=== PATIENT | male | born 1955 | race Hispanic/Latino ===

== ENCOUNTER 2018-03-05 17:37 | Inpatient (IN) | payer SELFPAY ==
[~2018-03-05] VITALS: Ht 180.3 cm; Wt 103.5 kg
[2018-03-05 17:57] LABS: BASOPHILS % (AUTO) 0.2 % (0.0-5.0); EOSINOPHILS % (AUTO) 0.7 % (0.0-8.0); HEMATOCRIT 47.9 % (42-54); LYMPHOCYTES % (AUTO) 7.7 % (21.0-51.0); MEAN CORPUSCULAR HEMOGLOBIN 28.5 pg (27.0-33.0); MEAN CORPUSCULAR VOLUME 83.8 fL (79-99); MONOCYTES % (AUTO) 3.1 % (3.0-13.0); NEUTROPHILS % (AUTO) 88.3 % (40.0-77.0); PLATELET COUNT (AUTO) 308 K/uL (130-400); RED BLOOD CELL COUNT(AUTO) 5.71 MIL/uL (4.50-6.20); RED CELL DISTRIBUTION WIDTH 13.4 % (11.0-15.5); WHITE BLOOD COUNT (AUTO) 10.2 K/uL (4.8-10.8)
[2018-03-05 18:11] LABS: CARBON DIOXIDE 27 mmol/L (21-32); CHLORIDE 102 mmol/L (101-111); CREATININE 0.8 mg/dL (0.5-1.5); GLOMERULAR FILTR. RATE CALC 104 mL/min (>60); GLUCOSE,RANDOM 163 mg/dL (70-105); POTASSIUM 3.8 mmol/L (3.5-5.1); SODIUM SERUM 138 mmol/L (136-145); UREA NITROGEN, BLOOD 25 mg/dL (7-18)
[2018-03-05 18:12] LABS: INR 1.02 (0.85-1.15); PARTIAL THROMBOPLASTIN TIME 27.8 SEC (26.3-35.5); PROTHROMBIN TIME 10.7 SEC (9.6-11.6)
[2018-03-05 18:25] LABS: ALANINE AMINOTRANSFERASE 35 U/L (12-78); ALBUMIN 3.7 g/dL (3.5-5.0); ASPARTATE AMINOTRANSFERASE 32 U/L (10-37); BILIRUBIN,TOTAL 1.8 mg/dL (0.2-1.0); CREATINE KINASE, TOTAL 92 U/L (21-232); MYOGLOBIN 43 ng/mL (10-92); TOTAL PROTEIN, SERUM 7.9 g/dL (6.0-8.3); TROPONIN I < 0.04 ng/mL (0.00-0.06)
[2018-03-05 18:43] LABS: APPEARANCE,URINE Clear (CLEAR); BILIRUBIN,URINE Negative (NEGATIVE); COLOR,URINE Yellow (YELLOW); GLUCOSE, URINE (UA) Negative (NEGATIVE); KETONES,URINE 40 mg/dL (NEGATIVE); LEUKOCYTE ESTERASE ,URINE Small (NEGATIVE); NITRATE,URINE Negative (NEGATIVE); OCCULT BLOOD,URINE Moderate (NEGATIVE); PROTEIN,URINE POS 1+ (NEGATIVE)
[2018-03-05] MEDS ORDERED: ACETAMINOPHEN 325 MG TAB ONE (18:49)
[2018-03-05] MEDS ORDERED: ONDANSETRON HCL 4 MG/2 ML VIAL ONE (18:49)
[2018-03-05] MEDS ORDERED: SODIUM CHLORIDE 0.9% 1000ML 1,000 ML IV ONE (18:49)
[2018-03-05] MEDS ORDERED: MORPHINE SULFATE 8 MG/ML VIAL ONE (18:50)
[2018-03-05 19:14] LABS: BACTERIA,URINE None Seen /HPF (None Seen); MUCUS,URINE Moderate LPF (None Seen)
[2018-03-05] MEDS ORDERED: CEFTRIAXONE SODIUM 1 GM ONE (20:21)
[2018-03-05] MEDS ORDERED: MORPHINE SULFATE 2 MG/ML 1ML SYG ONE (22:08)
[2018-03-06] MEDS ORDERED: KETOROLAC TROMETHAMINE 15MG/ML ONE (03:50)
[2018-03-06] MEDS ORDERED: SODIUM CHLORIDE 0.9% 1000ML 1,000 ML IV ONE (03:50)
[2018-03-06] MEDS ORDERED: ACETAMINOPHEN 325 MG TAB ONE (04:47)
[2018-03-06 06:34] LABS: BASOPHILS % (AUTO) 0.3 % (0.0-5.0); EOSINOPHILS % (AUTO) 0.7 % (0.0-8.0); HEMATOCRIT 42.7 % (42-54); LYMPHOCYTES % (AUTO) 15.7 % (21.0-51.0); MEAN CORPUSCULAR HEMOGLOBIN 28.7 pg (27.0-33.0); MEAN CORPUSCULAR HGB CONC 33.8 g/dL (32.0-36.0); MONOCYTES % (AUTO) 8.8 % (3.0-13.0); NEUTROPHILS % (AUTO) 74.5 % (40.0-77.0); PLATELET COUNT (AUTO) 220 K/uL (130-400); RED BLOOD CELL COUNT(AUTO) 5.02 MIL/uL (4.50-6.20); RED CELL DISTRIBUTION WIDTH 13.5 % (11.0-15.5); WHITE BLOOD COUNT (AUTO) 4.7 K/uL (4.8-10.8)
[2018-03-06 07:22] LABS: CREATININE 0.8 mg/dL (0.5-1.5); POTASSIUM 3.4 mmol/L (3.5-5.1)
[2018-03-06 07:28] LABS: ALBUMIN 2.9 g/dL (3.5-5.0); BILIRUBIN,TOTAL 1.4 mg/dL (0.2-1.0); TOTAL PROTEIN, SERUM 6.6 g/dL (6.0-8.3)
[2018-03-06 08:30] VITALS: BP 126/44
[2018-03-06 11:00] VITALS: BP 141/88
[2018-03-06] MEDS ORDERED: KETOROLAC TROMETHAMINE 15MG/ML IV PRN (13:30)
[2018-03-06] MEDS ORDERED: MORPHINE SULFATE 4 MG/1ML SYG IM PRN (13:30)
[2018-03-06] MEDS ORDERED: POTASSIUM CHLORIDE 20MEQ/100ML 100 ML IV PRN (13:30)
[2018-03-06] MEDS ORDERED: POTASSIUM CHLORIDE 10% ELIXIR 20 MEQ/15 ML UDCUP PO PRN (13:30)
[2018-03-06] MEDS ORDERED: ONDANSETRON HCL MDV 20ML 2 MG/ML VIAL IVP PRN (13:30)
[2018-03-06] MEDS ORDERED: LIDOCAINE HCL-MPF 1% 2ML VIAL IVP PRN (13:30)
[2018-03-06] MEDS ORDERED: ACETAMINOPHEN 325 MG TAB PO PRN (13:30)
[2018-03-06] MEDS: SODIUM CHLORIDE 0.9% 1000ML 1,000 ML IV SCH (13:30)
[2018-03-06] MEDS ORDERED: ATOR40TA71 PO (15:01)
[2018-03-06] MEDS ORDERED: LISI-617 PO (15:01)
[2018-03-06] MEDS ORDERED: LEVO500T2 PO (15:01)
[2018-03-06] MEDS ORDERED: METF-526 PO (15:01)
[2018-03-06] MEDS ORDERED: TAMS-1 PO (15:01)
[2018-03-06 16:00] VITALS: BP 135/77
[2018-03-06] MEDS: INSULIN HUMULIN R 100 UNIT/ML 3ML SQ SCH ×2 (16:30→20:15)
[2018-03-06 19:15] VITALS: BP 148/93
[2018-03-06 23:15] VITALS: BP 120/68
[2018-03-07] MEDS: SODIUM CHLORIDE 0.9% 1000ML 1,000 ML IV SCH ×2 (02:00→11:55)
[2018-03-07 03:30] VITALS: BP 136/82
[2018-03-07] MEDS: INSULIN HUMULIN R 100 UNIT/ML 3ML SQ SCH ×4 (07:07→21:00)
[2018-03-07 08:00] VITALS: BP 142/90
[2018-03-07 11:00] VITALS: BP 147/79
[2018-03-07 16:00] VITALS: BP 150/77
[2018-03-07] MEDS: FAMOTIDINE/PF 20 MG/2 ML VIAL IV SCH ×2 (16:19→21:07)
[2018-03-07] MEDS: METFORMIN HCL 500 MG TABLET PO SCH (16:20)
[2018-03-07] MEDS: POTASSIUM CHLORIDE 20 MEQ ERTAB PO PRN ×2 (16:20→18:33)
[2018-03-07] MEDS: CEFTRIAXONE SODIUM 1 GM IV SCH (18:33)
[2018-03-07 19:34] VITALS: BP 140/82
[2018-03-07] MEDS: LISINOPRIL 5 MG TABLET PO SCH (21:07)
[2018-03-07] MEDS ORDERED: LOPERAMIDE HCL 2 MG CAP PO ONE (21:21)
[2018-03-07 23:44] VITALS: BP 155/81
[2018-03-08] MEDS: SODIUM CHLORIDE 0.9% 1000ML 1,000 ML IV SCH ×2 (03:29→09:28)
[2018-03-08 03:57] VITALS: BP 143/77
[2018-03-08 06:09] LABS: BASOPHILS % (AUTO) 0.3 % (0.0-5.0); EOSINOPHILS % (AUTO) 3.1 % (0.0-8.0); HEMATOCRIT 43.8 % (42-54); LYMPHOCYTES % (AUTO) 30.6 % (21.0-51.0); MEAN CORPUSCULAR HEMOGLOBIN 28.8 pg (27.0-33.0); MEAN CORPUSCULAR HGB CONC 34.2 g/dL (32.0-36.0); MEAN CORPUSCULAR VOLUME 84.3 fL (79-99); MONOCYTES % (AUTO) 11.5 % (3.0-13.0); NEUTROPHILS % (AUTO) 54.5 % (40.0-77.0); PLATELET COUNT (AUTO) 234 K/uL (130-400); RED BLOOD CELL COUNT(AUTO) 5.19 MIL/uL (4.50-6.20); RED CELL DISTRIBUTION WIDTH 13.9 % (11.0-15.5); WHITE BLOOD COUNT (AUTO) 4.5 K/uL (4.8-10.8)
[2018-03-08] MEDS: INSULIN HUMULIN R 100 UNIT/ML 3ML SQ SCH ×4 (06:16→20:39)
[2018-03-08 06:18] LABS: CREATININE 0.7 mg/dL (0.5-1.5); POTASSIUM 3.8 mmol/L (3.5-5.1)
[2018-03-08 08:00] VITALS: BP 149/85
[2018-03-08] MEDS: ATORVASTATIN CALCIUM 40 MG TABLET PO SCH (09:24)
[2018-03-08] MEDS: TAMSULOSIN HCL 0.4 MG CAP.ER.24H PO SCH (09:24)
[2018-03-08] MEDS: CEFTRIAXONE SODIUM 1 GM IV SCH (09:24)
[2018-03-08] MEDS: FAMOTIDINE/PF 20 MG/2 ML VIAL IV SCH ×2 (09:24→20:42)
[2018-03-08 12:00] VITALS: BP 141/78
[2018-03-08 16:00] VITALS: BP 139/90
[2018-03-08] MEDS: METFORMIN HCL 500 MG TABLET PO SCH (17:22)
[2018-03-08 20:24] VITALS: BP 150/87
[2018-03-08] MEDS: LISINOPRIL 5 MG TABLET PO SCH (20:42)
[2018-03-08] MEDS: LOPERAMIDE HCL 2 MG CAP PO PRN (21:55)
[2018-03-09 00:24] VITALS: BP 113/54
[2018-03-09] MEDS: SODIUM CHLORIDE 0.9% 1000ML 1,000 ML IV SCH ×2 (03:55→07:43)
[2018-03-09 04:12] LABS: BASOPHILS % (AUTO) 0.4 % (0.0-5.0); EOSINOPHILS % (AUTO) 4.5 % (0.0-8.0); HEMATOCRIT 42.6 % (42-54); LYMPHOCYTES % (AUTO) 28.3 % (21.0-51.0); MEAN CORPUSCULAR HEMOGLOBIN 29.1 pg (27.0-33.0); MEAN CORPUSCULAR HGB CONC 34.5 g/dL (32.0-36.0); MEAN CORPUSCULAR VOLUME 84.4 fL (79-99); MONOCYTES % (AUTO) 9.5 % (3.0-13.0); NEUTROPHILS % (AUTO) 57.3 % (40.0-77.0); NUCLEATED RED BLOOD CELLS 0.1 % (0.0-0.19); PLATELET COUNT (AUTO) 244 K/uL (130-400); RED BLOOD CELL COUNT(AUTO) 5.05 MIL/uL (4.50-6.20); RED CELL DISTRIBUTION WIDTH 13.3 % (11.0-15.5); WHITE BLOOD COUNT (AUTO) 4.7 K/uL (4.8-10.8)
[2018-03-09 04:24] VITALS: BP 152/76
[2018-03-09 04:28] LABS: CREATININE 0.7 mg/dL (0.5-1.5); POTASSIUM 3.4 mmol/L (3.5-5.1)
[2018-03-09] MEDS: INSULIN HUMULIN R 100 UNIT/ML 3ML SQ SCH ×4 (06:14→20:59)
[2018-03-09] MEDS: POTASSIUM CHLORIDE 20 MEQ ERTAB PO PRN ×2 (06:16→17:19)
[2018-03-09] MEDS: FAMOTIDINE/PF 20 MG/2 ML VIAL IV SCH ×2 (07:34→20:56)
[2018-03-09] MEDS: TAMSULOSIN HCL 0.4 MG CAP.ER.24H PO SCH (07:34)
[2018-03-09] MEDS: CEFTRIAXONE SODIUM 1 GM IV SCH (07:34)
[2018-03-09] MEDS: ATORVASTATIN CALCIUM 40 MG TABLET PO SCH (07:34)
[2018-03-09] MEDS: LOPERAMIDE HCL 2 MG CAP PO PRN (07:34)
[2018-03-09 08:07] VITALS: BP 147/71
[2018-03-09 12:06] VITALS: BP 134/66
[2018-03-09 16:00] VITALS: BP 148/78
[2018-03-09] MEDS: METFORMIN HCL 500 MG TABLET PO SCH (17:18)
[2018-03-09 20:00] VITALS: BP 145/81
[2018-03-09] MEDS: LISINOPRIL 5 MG TABLET PO SCH (20:56)
[2018-03-10] VITALS: BP 115/69
[2018-03-10] MEDS: SODIUM CHLORIDE 0.9% 1000ML 1,000 ML IV SCH ×2 (01:37→16:41)
[2018-03-10 04:00] VITALS: BP 125/64
[2018-03-10 05:24] LABS: CREATININE 0.7 mg/dL (0.5-1.5); MAGNESIUM 1.7 mg/dL (1.80-2.40); POTASSIUM 3.6 mmol/L (3.5-5.1)
[2018-03-10] MEDS: INSULIN HUMULIN R 100 UNIT/ML 3ML SQ SCH ×3 (07:30→16:30)
[2018-03-10 08:00] VITALS: BP 154/78
[2018-03-10] MEDS ORDERED: MAGNESIUM SULFATE 2 GM in SODIUM CHLORIDE 0.9% 50 ML IV SCH (09:45)
[2018-03-10] MEDS ORDERED: MAGNESIUM 2GM PREMIX 50ML 50 ML IV SCH (09:45)
[2018-03-10] MEDS: TAMSULOSIN HCL 0.4 MG CAP.ER.24H PO SCH (10:17)
[2018-03-10] MEDS: ATORVASTATIN CALCIUM 40 MG TABLET PO SCH (10:17)
[2018-03-10] MEDS: FAMOTIDINE/PF 20 MG/2 ML VIAL IV SCH (10:17)
[2018-03-10] MEDS: CEFTRIAXONE SODIUM 1 GM IV SCH (10:17)
[2018-03-10] MEDS: POTASSIUM CHLORIDE 20 MEQ ERTAB PO PRN ×2 (10:25→10:26)
[2018-03-10] MEDS ORDERED: CEFD300C3 PO (10:33)
[2018-03-10 11:00] VITALS: BP 142/81
[2018-03-10 16:00] VITALS: BP 151/75
[2018-03-10] MEDS: METFORMIN HCL 500 MG TABLET PO SCH (16:40)
== END 2018-03-10 18:46 | disposition home or self-care (01) | DRG 694 ==
LOC: EDH 17:37 → EDHIP 17:38 → OBSVTOIN 17:38 → EDHIP 23:02 → UNDOADMOB 23:02 → EDHIP 23:03 → UNDOADMOB 23:03 → EDHIP 03-06 08:32 → 4CH 03-06 08:32 → 4BH 03-07 05:24
PROVIDERS: ADMIT Internal Medicine Nephrology; ATTEND Internal Medicine Nephrology
DX: N13.2 Hydronephrosis with renal and ureteral calculous obstruction (principal); N13.4 Hydroureter; N10 Acute pyelonephritis; N12 Tubulo-interstitial nephritis, not specified as acute or chronic; E11.9 Type 2 diabetes mellitus without complications; E78.5 Hyperlipidemia, unspecified; I10 Essential (primary) hypertension; N40.0 Benign prostatic hyperplasia without lower urinary tract symptoms; Z87.442 Personal history of urinary calculi; Z87.891 Personal history of nicotine dependence; Z79.84 Long term (current) use of oral hypoglycemic drugs; K52.9 Noninfective gastroenteritis and colitis, unspecified
CPT/HCPCS: 36415; 71045; 74176; 76700; 76705; 80048; 80053; 81001; 82550; 82553; 82948; 83605; 83735; 83874; 84484; 85025; 85610; 85730; 87040; 87088; 87507; 93005; J0696; J1885; J2270; J2405; J3475; J3490; J7030

== ENCOUNTER 2018-07-06 13:21 | Emergency (ER) | payer SELFPAY ==
[~2018-07-06 13:21] MED LIST: ATOR40TA71 PO; CEFD300C3 PO; LEVO500T2 PO; LISI-617 PO; METF-526 PO; TAMS-1 PO
[2018-07-06 13:53] LABS: APPEARANCE,URINE Clear (CLEAR); BILIRUBIN,URINE Negative (NEGATIVE); COLOR,URINE Yellow (YELLOW); GLUCOSE, URINE (UA) Negative (NEGATIVE); KETONES,URINE Negative (NEGATIVE); LEUKOCYTE ESTERASE ,URINE Small (NEGATIVE); NITRATE,URINE Negative (NEGATIVE); OCCULT BLOOD,URINE Moderate (NEGATIVE); PH,URINE 5.5 (5.0-8.0); PROTEIN,URINE POS 1+ (NEGATIVE)
[2018-07-06] MEDS ORDERED: ONDANSETRON HCL 4 MG/2 ML VIAL ONE (14:01)
[2018-07-06] MEDS ORDERED: KETOROLAC TROMETHAMINE 15MG/ML ONE (14:02)
[2018-07-06 14:05] LABS: BACTERIA,URINE Rare /HPF (None Seen); MUCUS,URINE Few LPF (None Seen); SQUAMOUS EPITHELIAL CELL,UR Rare /HPF (0-2)
[2018-07-06 14:19] LABS: BASOPHILS % (AUTO) 0.4 % (0.0-5.0); EOSINOPHILS % (AUTO) 8.3 % (0.0-8.0); LYMPHOCYTES % (AUTO) 21.4 % (21.0-51.0); MEAN CORPUSCULAR HEMOGLOBIN 29.1 pg (27.0-33.0); MEAN CORPUSCULAR HGB CONC 33.9 g/dL (32.0-36.0); MEAN CORPUSCULAR VOLUME 85.8 fL (79-99); MONOCYTES % (AUTO) 7.8 % (3.0-13.0); NEUTROPHILS % (AUTO) 62.1 % (40.0-77.0); PLATELET COUNT (AUTO) 252 K/uL (130-400); RED BLOOD CELL COUNT(AUTO) 4.89 MIL/uL (4.50-6.20); WHITE BLOOD COUNT (AUTO) 6.6 K/uL (4.8-10.8)
[2018-07-06 14:22] LABS: AMYLASE 36 U/L (25-115); CREATININE 0.8 mg/dL (0.5-1.5); LIPASE 129 U/L (114-286); POTASSIUM 3.6 mmol/L (3.5-5.1)
[2018-07-06 14:28] LABS: ALBUMIN 3.3 g/dL (3.5-5.0); BILIRUBIN,TOTAL 1.1 mg/dL (0.2-1.0); TOTAL PROTEIN, SERUM 7.4 g/dL (6.0-8.3)
== END 2018-07-06 18:14 | disposition home or self-care (01) ==
LOC: EDH 13:21
DX: K80.50 Calculus of bile duct without cholangitis or cholecystitis without obstruction (principal); I10 Essential (primary) hypertension; E11.9 Type 2 diabetes mellitus without complications; Z87.891 Personal history of nicotine dependence
CPT/HCPCS: 36415; 74176; 76705; 80053; 81001; 82150; 83690; 84484; 85025; 96374; 96375; 99285; J1885; J2405

== ENCOUNTER 2019-03-11 09:54 | Emergency (ER) | payer OTHER ==
[2019-03-11 11:08] LABS: APPEARANCE,URINE Cloudy (CLEAR); BILIRUBIN,URINE Negative (NEGATIVE); COLOR,URINE Yellow (YELLOW); GLUCOSE, URINE (UA) >=1000 mg/dL (NEGATIVE); KETONES,URINE Negative (NEGATIVE); LEUKOCYTE ESTERASE ,URINE Small (NEGATIVE); NITRATE,URINE Negative (NEGATIVE); OCCULT BLOOD,URINE Small (NEGATIVE); PH,URINE 6.5 (5.0-8.0); PROTEIN,URINE Negative (NEGATIVE)
[2019-03-11 11:33] LABS: BACTERIA,URINE Rare /HPF (None Seen); SQUAMOUS EPITHELIAL CELL,UR Rare /HPF (0-2)
[2019-03-11 11:38] LABS: BASOPHILS % (AUTO) 0.4 % (0.0-5.0); EOSINOPHILS % (AUTO) 2.4 % (0.0-8.0); HEMATOCRIT 37.9 % (42-54); LYMPHOCYTES % (AUTO) 23.9 % (21.0-51.0); MEAN CORPUSCULAR HEMOGLOBIN 28.8 pg (27.0-33.0); MEAN CORPUSCULAR HGB CONC 33.4 g/dL (32.0-36.0); MEAN CORPUSCULAR VOLUME 86.1 fL (79-99); MONOCYTES % (AUTO) 11.4 % (3.0-13.0); NEUTROPHILS % (AUTO) 61.9 % (40.0-77.0); PLATELET COUNT (AUTO) 220 K/uL (130-400); RED BLOOD CELL COUNT(AUTO) 4.41 MIL/uL (4.50-6.20); RED CELL DISTRIBUTION WIDTH 13.5 % (11.0-15.5); WHITE BLOOD COUNT (AUTO) 5.3 K/uL (4.8-10.8)
[2019-03-11 11:45] LABS: CREATININE 1.2 mg/dL (0.5-1.5); POTASSIUM 3.7 mmol/L (3.5-5.1)
[2019-03-11 11:49] LABS: ALBUMIN 3.3 g/dL (3.5-5.0); BILIRUBIN,TOTAL 1.2 mg/dL (0.2-1.0)
[2019-03-11] MEDS ORDERED: MORPHINE SULFATE 4 MG/1ML SYG ONE (13:30)
[2019-03-11] MEDS ORDERED: LIDOCAINE HCL-MPF 1% 2ML VIAL ONE (15:07)
[2019-03-11] MEDS ORDERED: CEFTRIAXONE SODIUM 1 GM ONE (15:07)
== END 2019-03-11 16:08 | disposition home or self-care (01) ==
LOC: EDH 09:54
DX: N13.2 Hydronephrosis with renal and ureteral calculous obstruction (principal); N30.00 Acute cystitis without hematuria; N40.0 Benign prostatic hyperplasia without lower urinary tract symptoms; E11.9 Type 2 diabetes mellitus without complications; I10 Essential (primary) hypertension; E78.5 Hyperlipidemia, unspecified; Z87.891 Personal history of nicotine dependence
CPT/HCPCS: 36415; 74176; 80053; 81001; 85025; 87088; 96372; 96374; 99285; J0696; J2270; J3490